=== PATIENT | male | born 1985 | race Caucasian/White ===

== ENCOUNTER 2016-10-24 11:01 | Inpatient (IN) | payer OTHER ==
[~2016-10-24] VITALS: Ht 185.4 cm; Wt 100.0 kg
[2016-10-24] MEDS ORDERED: ONDANSETRON 2MG/ML, 2ML IVPush ONE (11:30)
[2016-10-24] MEDS ORDERED: SODIUM CHLORIDE FLUSH 10ML SYR IVF ONE (11:30)
[2016-10-24] MEDS ORDERED: MECLIZINE CHEWABLE 25 MG TAB PO ONE (11:30)
[2016-10-24] MEDS ORDERED: ONDANSETRON 2MG/ML, 2ML ONE (11:32)
[2016-10-24] MEDS ORDERED: MECLIZINE CHEWABLE 25 MG TAB ONE (11:38)
[2016-10-24 11:46] LABS: HEMATOCRIT 48.5 % (39.2-51.8); HEMOGLOBIN 16.4 g/dL (13.7-18.0); WHITE BLOOD COUNT 11.7 x10^3/uL (3.4-10)
[2016-10-24 11:54] LABS: ASPARTATE AMINO TRANSFERASE 45 U/L (15-37); BLOOD UREA NITROGEN 15 mg/dL (7-18)
[2016-10-24 11:57] LABS: ACETAMINOPHEN < 2 mcg/mL (10-30)
[2016-10-24] MEDS ORDERED: PROMETHAZINE 25 MG/ML, 1ML IM ONE (13:30)
[2016-10-24 13:32] LABS: DAU SCREEN DISCLAIMER
[2016-10-24] MEDS ORDERED: SODIUM CHLORIDE FLUSH 10ML SYR IVF PRN (15:00)
[2016-10-24] MEDS ORDERED: PLEASE ENTER ALLERGIES MC SCH ×2 (15:00)
[2016-10-24] MEDS ORDERED: morphine SULFATE 10 MG/ML, 1ML IVPush PRN (15:30)
[2016-10-24] MEDS ORDERED: ONDANSETRON 2MG/ML, 2ML IVPush PRN (15:30)
[2016-10-24] MEDS ORDERED: ACETAMINOPHEN 325 MG TABLET PO PRN (15:30)
[2016-10-24] MEDS ORDERED: hydrALAzine 20 MG/ML, 1ML IVPush PRN (15:30)
[2016-10-24] MEDS ORDERED: HYDROcodone/APAP 5/325 TABLET PO PRN (15:30)
[2016-10-24 17:15] VITALS: BP 137/87
[2016-10-24] MEDS: SODIUM CHLORIDE 0.9% 1,000 ML IV SCH (17:35)
[2016-10-24] MEDS: KETOROLAC 30 MG/1 ML IVPush SCH ×2 (17:44→23:38)
[2016-10-24] MEDS: DIPHENHYDRAMINE 50 MG/ML, 1ML IVPush SCH ×2 (17:44→23:38)
[2016-10-24] MEDS: ONDANSETRON 2MG/ML, 2ML IVPush SCH ×2 (17:46→23:38)
[2016-10-24] MEDS: VALPROATE SODIUM 500 MG in DEXTROSE 5% 100 ML IV SCH (18:31)
[2016-10-24 20:58] VITALS: BP_SYST 139; BP_SYST 153; BP_DIAS 79; BP_DIAS 94
[2016-10-25] MEDS: VALPROATE SODIUM 500 MG in DEXTROSE 5% 100 ML IV SCH ×4 (00:30→16:49)
[2016-10-25 02:39] VITALS: BP 103/63
[2016-10-25] MEDS: SODIUM CHLORIDE 0.9% 1,000 ML IV SCH (02:42)
[2016-10-25 04:51] LABS: HEMATOCRIT 45.7 % (39.2-51.8); HEMOGLOBIN 15.3 g/dL (13.7-18.0); WHITE BLOOD COUNT 19.3 x10^3/uL (3.4-10)
[2016-10-25 05:05] LABS: BLOOD UREA NITROGEN 13 mg/dL (7-18)
[2016-10-25] MEDS: ONDANSETRON 2MG/ML, 2ML IVPush SCH ×2 (06:03→12:32)
[2016-10-25] MEDS: DIPHENHYDRAMINE 50 MG/ML, 1ML IVPush SCH ×3 (06:03→16:49)
[2016-10-25] MEDS: KETOROLAC 30 MG/1 ML IVPush SCH ×2 (06:03→12:32)
[2016-10-25 06:39] VITALS: BP 118/67
[2016-10-25 13:56] VITALS: BP 122/70
[2016-10-25] MEDS ORDERED: SUMA50TA3 PO (16:09)
[2016-10-25] MEDS ORDERED: KETO10TA PO (16:09)
[2016-10-25 18:02] VITALS: BP 132/71
== END 2016-10-25 18:40 | disposition home or self-care (01) | DRG 103 ==
LOC: EDBD 11:01 → SUATTDRO 14:54 → MERGE 15:28 → ED 15:28 → EDIP 15:40 → 4NOR 16:54
PROVIDERS: ADMIT Internal Medicine; ATTEND Internal Medicine
DX: G43.809 Other migraine, not intractable, without status migrainosus (principal); E87.2 Acidosis; E87.1 Hypo-osmolality and hyponatremia; E86.0 Dehydration; D72.829 Elevated white blood cell count, unspecified; T68.XXXA Hypothermia, initial encounter; R09.02 Hypoxemia; R20.0 Anesthesia of skin
CPT/HCPCS: 36415; 70450; 71010; 80048; 80053; 80307; 80329; 81001; 82140; 82533; 83605; 84439; 84443; 85025; 87040; 93005; 93306; 96372; 96374; J1885; J2405; J2550; G0480; J1200; J7030